=== PATIENT | female | born 1980 | race Caucasian/White ===

== ENCOUNTER 2017-03-03 18:35 | Inpatient (IN) ==
[2017-03-03] MEDS ORDERED: LR 2,000 ML ONE (19:13)
[2017-03-03] MEDS ORDERED: KEFZOL 1 GM/D5W 1 GM/50 ML IVPB IV PRN (19:16)
[2017-03-03] MEDS ORDERED: TYLENOL PO PRN (19:16)
[2017-03-03] MEDS ORDERED: PEPCID PO PRN (19:16)
[2017-03-03] MEDS ORDERED: STADOL IV PRN (19:16)
[2017-03-03] MEDS ORDERED: REGLAN PO ONE (19:16)
[2017-03-03] MEDS ORDERED: PEPCID PO ONE (19:16)
[2017-03-03] MEDS ORDERED: PEPCID IV PRN (19:16)
[2017-03-03] MEDS ORDERED: LR 1,000 ML IV SCH (19:16)
[2017-03-03] MEDS ORDERED: ZOFRAN IV PRN (19:16)
[2017-03-03] MEDS ORDERED: PITOCIN 30 UNITS/LR 30 UNITS/500 ML IV.SOLN IV SCH (19:16)
[2017-03-03] MEDS ORDERED: FENTANYL-BUPIV-NS 2 MCG-0.1% 200 ML EPIDURAL PRN (19:28)
[2017-03-03] MEDS ORDERED: XYLOCAINE-MPF 1% INJ ONE (19:29)
[2017-03-03] MEDS ORDERED: MINERAL OIL ONE (19:29)
[2017-03-03] MEDS ORDERED: SODIUM CHLORIDE 0.9% INJ SCH (19:30)
[2017-03-03 19:32] LABS: MANUAL DIFF NEEDED? NO
[2017-03-03 19:32] LABS: URINE SOURCE VOIDED
[2017-03-03 19:34] LABS: BASO% 0.2 % (0.0-0.8); EOS# 0.15 X1000 (0.0-0.7); HEMATOCRIT 36.1 % (37.0-47.0); HEMOGLOBIN 12.8 g/dL (12.0-16.0); IMM GRAN# 0.06 X1000 (0.0-0.04); IMM GRAN% 0.4 % (0.0-0.5); LYMPH# 1.83 X1000 (1.2-3.4); LYMPH% 12.8 % (20.5-51.1); MCH 32.3 PG (27-31); MCHC 35.5 g/dL (33-37); MCV 91.2 FL (81-99); MONO# 1.05 X1000 (0.11-0.59); MONO% 7.3 % (1.7-9.3); MPV 10.9 FL (7.4-10.4); NEUT% 78.3 % (42.2-75.2); PLT 177 X1000 (130-400); RBC 3.96 XMIL (4.2-5.4)
[2017-03-03 19:36] LABS: BILIRUBIN URINE NEGATIVE (NEGATIVE); BLOOD URINE 4+ (NEGATIVE); CLARITY CLEAR (CLEAR); COLOR YELLOW; GLUCOSE URINE NEGATIVE (NEGATIVE); LEUKOCYTES URINE 2+ (NEGATIVE); NITRITE URINE NEGATIVE (NEGATIVE); PROTEIN URINE 1+(30 mg/dL) mg/dL (NEGATIVE); SP GRAVITY URINE 1.005; UROBILINOGEN URINE NORMAL
[2017-03-03] MEDS ORDERED: CYTOTEC PO PRN (20:13)
[2017-03-03] MEDS ORDERED: BENADRYL IV PRN (20:13)
[2017-03-03] MEDS ORDERED: BENADRYL PO PRN (20:13)
[2017-03-03] MEDS ORDERED: PITOCIN 20 UNITS/LR 20 UNITS/1,000 ML IV.SOLN IV SCH (20:13)
[2017-03-03] MEDS ORDERED: HYDROXYZINE PO PRN (20:13)
[2017-03-03] MEDS ORDERED: PERI MEDS (DERMOPLAST/NUPERCAINAL/TUCKS) MISC PRN (20:13)
[2017-03-03] MEDS ORDERED: M-M-R II VACCINE SUBQ ONE (20:13)
[2017-03-03] MEDS ORDERED: AMBIEN PO PRN (20:13)
[2017-03-03] MEDS ORDERED: HYDROXYZINE IM PRN (20:13)
[2017-03-03] MEDS ORDERED: MINERAL OIL PO PRN (20:13)
[2017-03-03] MEDS ORDERED: BOOSTRIX VACCINE IM ONE (20:13)
[2017-03-03] MEDS ORDERED: PITOCIN IM PRN (20:13)
[2017-03-03] MEDS ORDERED: XYLOCAINE-MPF 1% INJ PRN (20:13)
[2017-03-03] MEDS ORDERED: NUBAIN IV PRN (23:29)
[2017-03-03] MEDS: PITOCIN 30 UNITS/LR 30 UNITS/500 ML IV.SOLN IV ONE ×2 (23:30→23:41)
[2017-03-04] MEDS: NORCO-10 PO PRN ×2 (03:41→20:46)
[2017-03-04] MEDS: MOTRIN PO PRN ×3 (03:41→20:46)
[2017-03-04] MEDS: PERICOLACE PO SCH ×2 (03:48→20:46)
[2017-03-04 06:42] LABS: HEMATOCRIT 32.4 % (37.0-47.0); MCH 31.6 PG (27-31); MCV 93.1 FL (81-99); MPV 11.5 FL (7.4-10.4); RBC 3.48 XMIL (4.2-5.4)
[2017-03-04] MEDS: NORCO-5 PO PRN (16:36)
[2017-03-05] MEDS: MOTRIN PO PRN ×2 (07:08→15:17)
[2017-03-05] MEDS: NORCO-5 PO PRN (15:17)
[2017-03-05] MEDS: NORCO-10 PO PRN (20:39)
[2017-03-05] MEDS: PERICOLACE PO SCH (20:39)
[2017-03-06] MEDS: MOTRIN PO PRN (07:42)
[2017-03-06] MEDS: NORCO-10 PO PRN (07:43)
== END 2017-03-06 14:50 | disposition home or self-care (01) ==
LOC: P.OPLD 18:35 → P.LD 18:37
PROVIDERS: ADMIT Obstetrics & Gynecology; ATTEND Obstetrics & Gynecology